=== PATIENT | female | born 1965 ===

== ENCOUNTER → 2018-02-09 02:17 | Outpatient (REF) | payer OTHER, SELFPAY ==
[2018-02-09 02:32] LABS: Add Manual Diff / Slide Review NO; Basophils Percent Auto 0.2 % (0-2); Eosinophils Percent Auto 0.2 % (2-4); Hematocrit 40.2 % (36-46); Hemoglobin 13.5 g/dL (12.0-16.0); Lymphocytes Percent Auto 9.5 % (25-40); Mean Corpuscular HGB Conc 33.7 % (30-36); Mean Corpuscular Hemoglobin 30.6 PG (26-34); Mean Corpuscular Volume 90.7 fL (80-100); Monocytes Percent Auto 1.7 % (3-14); Neutrophils Absolute Auto 8900 /uL (1500-7000); Neutrophils Percent Auto 88.4 % (50-75); Platelet Count 407 X10^3/uL (150-400); Red Blood Cell Count 4.43 X10^6/uL (4.0-5.2); Red Cell Distribution Width 13.3 % (11.6-14.8); White Blood Cell Count 10.1 X10^3/uL (4.5-11.0)
[2018-02-09 05:39] LABS: Alanine Aminotransferase 32 IU/L (9-52); Albumin 4.7 g/dL (3.5-5.0); Albumin Globulin Ratio 1.5 (1.0-2.8); Alkaline Phosphatase 59 U/L (38-126); Aspartate Aminotransferase 35 IU/L (14-36); BUN Creatinine Ratio 36.7 (6-22); Bilirubin Total 0.3 mg/dL (0.2-1.3); Blood Urea Nitrogen 22 mg/dL (7-17); Calcium 10.1 mg/dL (8.4-10.2); Carbon Dioxide 28 mmol/L (22-32); Chloride 101 mmol/L (98-107); Estimated Glomerular Filt Rate > 60.0 mL/min (>60); Globulin 3.1 g/dL (1.7-4.1); Glucose 112 mg/dL (70-100); HEMOLYSIS < 15 (0-50); Potassium 4.4 mmol/L (3.4-5.1); Sodium 140 mmol/L (137-145); Total Protein 7.8 g/dL (6.3-8.2)
[2018-02-09 07:06] LABS: TSH w/ Reflex to FT4 0.31 uIU/mL (0.47-4.68)
== END ==
LOC: LAB 02:17
PROVIDERS: Visit Provider Family Medicine
DX: R00.0 Tachycardia, unspecified (principal)
CPT/HCPCS: 36415; 80053; 84439; 84443; 85025

== ENCOUNTER → 2018-04-03 21:39 | Outpatient (REF) | payer OTHER, SELFPAY ==
[2018-04-03 22:41] LABS: Add Manual Diff / Slide Review NO; Basophils Absolute Auto 0 /uL (0-100); Basophils Percent Auto 0.4 % (0-2); Eosinophils Absolute Auto 100 /uL (0-450); Eosinophils Percent Auto 1.2 % (2-4); Hematocrit 41.6 % (36-46); Hemoglobin 13.9 g/dL (12.0-16.0); Lymphocytes Absolute Auto 1800 /uL (1100-4500); Lymphocytes Percent Auto 25.6 % (25-40); Mean Corpuscular HGB Conc 33.3 % (30-36); Mean Corpuscular Hemoglobin 30.4 PG (26-34); Mean Corpuscular Volume 91.4 fL (80-100); Monocytes Absolute Auto 500 /uL (0-900); Monocytes Percent Auto 6.8 % (3-14); Neutrophils Absolute Auto 4700 /uL (1500-7000); Platelet Count 345 X10^3/uL (150-400); Red Blood Cell Count 4.55 X10^6/uL (4.0-5.2); Red Cell Distribution Width 13.1 % (11.6-14.8); White Blood Cell Count 7.1 X10^3/uL (4.5-11.0)
[2018-04-03 23:04] LABS: Alanine Aminotransferase 29 IU/L (9-52); Albumin Globulin Ratio 1.6 (1.0-2.8); Alkaline Phosphatase 55 U/L (38-126); Aspartate Aminotransferase 39 IU/L (14-36); BUN Creatinine Ratio 21.4 (6-22); Bilirubin Total 0.5 mg/dL (0.2-1.3); Blood Urea Nitrogen 15 mg/dL (7-17); Calcium 10.3 mg/dL (8.4-10.2); Carbon Dioxide 25 mmol/L (22-32); Chloride 101 mmol/L (98-107); Estimated Glomerular Filt Rate > 60.0 mL/min (>60); Globulin 3.1 g/dL (1.7-4.1); Glucose 83 mg/dL (70-100); HEMOLYSIS 16 (0-50); Potassium 4.3 mmol/L (3.4-5.1); Sodium 139 mmol/L (137-145); Total Protein 8.1 g/dL (6.3-8.2)
[2018-04-03 23:39] LABS: Ferritin 73.9 ng/mL (11.1-264)
[2018-04-03 23:43] LABS: Free T4, Direct Thyroxine 1.05 ng/dL (0.78-2.19)
[2018-04-03 23:57] LABS: Thyroid Stimulating Hormone 0.46 uIU/mL (0.47-4.68)
== END ==
LOC: LAB 21:39
PROVIDERS: Visit Provider Family Medicine
DX: R53.83 Other fatigue (principal)
CPT/HCPCS: 36415; 80053; 82728; 84439; 84443; 85025

== ENCOUNTER → 2018-04-10 21:27 | Outpatient (REF) | payer OTHER, SELFPAY ==
[2018-04-10 22:11] LABS: Add Manual Diff / Slide Review NO; Basophils Absolute Auto 0 /uL (0-100); Basophils Percent Auto 0.4 % (0-2); Eosinophils Absolute Auto 100 /uL (0-450); Eosinophils Percent Auto 2.4 % (2-4); Hematocrit 40.5 % (36-46); Hemoglobin 13.6 g/dL (12.0-16.0); Lymphocytes Absolute Auto 1700 /uL (1100-4500); Lymphocytes Percent Auto 34.3 % (25-40); Mean Corpuscular HGB Conc 33.6 % (30-36); Mean Corpuscular Hemoglobin 30.6 PG (26-34); Monocytes Absolute Auto 300 /uL (0-900); Monocytes Percent Auto 6.8 % (3-14); Neutrophils Absolute Auto 2700 /uL (1500-7000); Neutrophils Percent Auto 56.1 % (50-75); Platelet Count 324 X10^3/uL (150-400); Red Blood Cell Count 4.45 X10^6/uL (4.0-5.2); White Blood Cell Count 4.9 X10^3/uL (4.5-11.0)
[2018-04-10 22:26] LABS: Alanine Aminotransferase 41 IU/L (9-52); Albumin 4.7 g/dL (3.5-5.0); Albumin Globulin Ratio 1.6 (1.0-2.8); Alkaline Phosphatase 82 U/L (38-126); Aspartate Aminotransferase 49 IU/L (14-36); BUN Creatinine Ratio 24.3 (6-22); Bilirubin Total 0.4 mg/dL (0.2-1.3); Blood Urea Nitrogen 17 mg/dL (7-17); Calcium 9.8 mg/dL (8.4-10.2); Carbon Dioxide 28 mmol/L (22-32); Chloride 100 mmol/L (98-107); Estimated Glomerular Filt Rate > 60.0 mL/min (>60); Glucose 82 mg/dL (70-100); HEMOLYSIS < 15 (0-50); Potassium 4.3 mmol/L (3.4-5.1); Sodium 137 mmol/L (137-145); Total Protein 7.7 g/dL (6.3-8.2)
[2018-04-11 06:53] LABS: Hepatitis B Surface Antigen NEGATIVE s/c (NEGATIVE)
[2018-04-11 07:23] LABS: Hep C Virus Ab w/Reflex Quant NEGATIVE s/c (NEGATIVE)
[2018-04-12 15:13] LABS: Parathyroid Hormone Int 43 pg/mL (14-64)
[2018-04-12 15:17] LABS: Hepatitis B Core Antibody Nonreactive (Nonreactive)
[2018-04-12 15:19] LABS: Hepatitis A Ab Total Nonreactive (Nonreactive)
[2018-04-12 15:59] LABS: Hepatitis B Surf AB Imm QUANT < 5 mIU/mL (> 9)
== END ==
LOC: LAB 21:27
PROVIDERS: Visit Provider Family Medicine
DX: F41.1 Generalized anxiety disorder (principal)
CPT/HCPCS: 36415; 80053; 83970; 85025; 86317; 86704; 86803; 87086; 87340

== ENCOUNTER → 2018-04-18 20:59 | Outpatient (REF) | payer OTHER, SELFPAY ==
[2018-04-18 22:30] LABS: Erythrocyte Sedimentation Rate 4 MM/HR (0-20)
[2018-04-18 22:37] LABS: Uric Acid 3.5 mg/dL (2.5-6.2)
[2018-04-18 23:00] LABS: C-Reactive Protein Quant < 0.5 mg/dL (<1.0)
[2018-04-21 20:28] LABS: ANA Pattern Nucleolar; ANA Screen, IFA Positive (Negative); ANA Titer 1:40 titer (<1:40)
== END ==
LOC: LAB 20:59
PROVIDERS: Visit Provider Family Medicine
DX: F41.1 Generalized anxiety disorder (principal); M25.50 Pain in unspecified joint; Z23 Encounter for immunization
CPT/HCPCS: 36415; 84550; 85651; 86038; 86140; 86200; 86431

== ENCOUNTER → 2018-05-21 21:19 | Outpatient (REF) | payer OTHER, SELFPAY ==
[2018-05-21 21:21] LABS: Bacteria Urine None Seen; RBC Urine None Seen (0-5/HPF); WBC Urine None Seen (0-5/HPF)
[2018-05-21 22:03] LABS: Appearance Urine UA CLEAR; Bilirubin Urine UA NEGATIVE (NEGATIVE); Color Urine UA YELLOW; Glucose Urine UA NEGATIVE (Negative); Ketones Urine UA NEGATIVE (NEGATIVE); Leukocyte Esterase Urine UA NEGATIVE (NEGATIVE); Nitrite Urine UA NEGATIVE (Negative); Occult Blood Urine UA NEGATIVE (Negative); Protein Urine UA NEGATIVE (Negative); Urobilinogen Urine UA 0.2 E.U./dL (0.2); pH Urine UA 6.5 (4.5-8.0)
[2018-05-21 22:23] LABS: Culture Indicated Urine Cult Not Indicated; Urine Comments Microscopic Normal
== END ==
LOC: LAB 21:19
PROVIDERS: Visit Provider Family Medicine
DX: N39.0 Urinary tract infection, site not specified (principal)
CPT/HCPCS: 81001